=== PATIENT | female | born 1930 | race Hispanic/Latino ===

== ENCOUNTER 2017-05-27 14:36 | Outpatient (CLI) | payer MEDICARE, MEDICAID ==
--- NOTE | 2017-05-27 17:50 | ULT ---
BILATERAL RENAL ULTRASOUND: Date: 05/27/17 HISTORY: Recurrent UTIs. FINDINGS: The right kidney measures 9.0 cm in length and the left kidney measures 9.2 cm in length. No focal m ass or hydronephrosis is seen on either side. There is minimal cortical thinning on the right compar ed to the left. The urinary bladder is unremarkable. IMPRESSION: No significant abnormalities are seen. POS: [facility]
== END 2017-05-27 14:37 | disposition home or self-care (01) ==
LOC: SCSULT 14:36
PROVIDERS: ATTEND Internal Medicine Geriatric Medicine
DX: N39.0 Urinary tract infection, site not specified (principal)
CPT/HCPCS: 76770